=== PATIENT | female | born 1975 | race Caucasian/White ===

== ENCOUNTER 2024-09-18 21:16 | Emergency (ER) | payer BC, OTHER, SELFPAY ==
[2024-09-18 22:41] LABS: ALT/SGPT 26 U/L (13-56); AST/SGOT 15 U/L (15-37); Albumin 3.5 g/dL (3.4-5.0); Albumin/Globulin Ratio 0.9 (1.1-1.8); Alkaline Phosphatase 47 U/L (45-117); BUN Blood Urea Nitrogen 26 mg/dL (7-18); Bicarbonate 26 mEq/L (21-32); Bilirubin Total 0.2 mg/dL (0.2-1.0); Globulin 3.7 g/dL (2.3-3.5); Glomerular Filtration Rate 70 ml/min (=/>90); Glucose Level 94 mg/dL (74-106); NT PRO-BNP 66 pg/mL (<125); Protein, Total 7.2 g/dL (6.4-8.2); Sodium Level 136 mEq/L (136-145)
[2024-09-18 22:42] LABS: Bilirubin Direct < 0.2 mg/dL (0-0.2); Troponin High Sensitivity < 3.0 pg/mL (<58.9)
[2024-09-18 22:46] LABS: Absolute Basophils 0.1 K/uL (0-0.5); Absolute Eosinophils 1.1 K/uL (0-0.5); Absolute Lymphocytes (CBC) 2.5 K/uL (0.7-4.9); Absolute Monocytes 0.6 K/uL (0.1-1.3); Absolute Neutrophil 5.1 K/uL (1.8-8.0); Basophils % 0.9 % (0-1.3); Eosinophils % 11.6 % (0-4.4); Hematocrit 39.1 % (36.0-45.0); Hemoglobin 13.4 g/dL (12.0-15.0); Lymphocytes % 26.4 % (15.3-44.8); MCH 31.2 pg (27.0-35.0); MCHC 34.3 g/dL (32.0-36.0); MCV 90.8 fL (80-100); MPV 8.7 fL (7.6-11.3); Monocytes % 6.4 % (3.3-12.3); Neutrophils % 54.7 % (41.7-73.7); Nucleated Red Blood Cells % 0.1 % (0-0); Platelets 277 thou/uL (152-406); RBC Red Blood Cell Count 4.31 M/uL (3.86-4.86); Red Cell Distribution Width 13.4 % (12.1-15.2)
[2024-09-18] MEDS ORDERED: KETOROLAC 30 MG/ML INJ ONE (22:54)
[2024-09-18] MEDS ORDERED: NA CHLORIDE 0.9% 500 ML ONE (22:55)
[2024-09-19] MEDS ORDERED: MAGNES/ALUMIN/SIMET 30ML UCUP ONE (00:26)
[2024-09-19] MEDS ORDERED: DICYCLOMINE HCL 10 MG CAP ONE (00:26)
[2024-09-19] MEDS ORDERED: LIDOCAINE VISCOUS 2% 10ML ORAL SOLN ONE (00:27)
--- NOTE | 2024-09-19 00:58 | RAD REPORT ---
PROCEDURE: ULTRASOUND RIGHT UPPER QUADRANT TECHNIQUE: High-resolution sonographic evaluation of the right upper quadrant performed. INDICATION: , , ABD PAIN, Bed Name: 9 COMPARE: None FINDINGS: Gallbladder: Unremarkable. No cholelithiasis. Gallbladder wall 2 mm. No pericholecystic fluid. Intrahepatic bile ducts: Normal . Extrahepatic bile ducts: Normal. Common bile duct: 2 mm. IMPRESSION: Normal gallbladder. No biliary dilatation. Electronically signed by: Ismael Corea MD 09/19/2024 12:53 AM [facility] Workstation: [facility] [id number] Due to temporary technical issues with the PACS/[employer] scribe reporting system, reports are being sign ed by the in-house radiologist without review as a courtesy to ensure prompt reporting the interpreting rad iologist is fully responsible for the content of the report. Transcribed Date/Time: 09/19/2024 12:57 AM
--- NOTE | 2024-09-19 01:13 | EDPHYS ---
Physician Documentation [facility] Name: Kasandra Anderson Age: 49 yrs Sex: Female : 1975 Arrival Date: 09/18/2024 Time: 21:16 Bed 9 Private MD: ED Physician Cole Anderson HPI: 09/18 21:26 This 49 yrs old Female presents to ER via Unassigned with complaints of Chest sp4 Pain. 09/19 01:09 Patient is 49-year-old female with history of hypothyroidism, additionally gastritis sp4 and esophagitis, presents with acute onset of upper abdominal epigastric and lower chest pain associated with radiation to the right jaw. . 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 - Infectious Disease History:: Denies. - Social history:: Smoking status: Patient denies any tobacco usage or history of. - Family history:: not pertinent. ROS: 09/19 01:25 Constitutional: Negative for fever, chills, and weight loss, positive chest pain sp4 positive upper abdominal pain All other systems are negative, Exam: 01:25 Constitutional: This is a well developed, well nourished patient who is awake, alert, sp4 and in no acute distress. Head/Face: Normocephalic, atraumatic. Eyes: Pupils equal round and reactive to light, extra-ocular motions intact. Lids and lashes normal. Conjunctiva and sclera are not injected. Cornea within normal limits. Periorbital areas with no swelling, redness, or edema. ENT: Nares patent. No nasal discharge, no septal abnormalities noted. Tympanic membranes are normal and external auditory canals are clear. Oropharynx with no redness, swelling, or masses, exudates, or evidence of obstruction, uvula midline. Mucous membranes moist. Neck: Trachea midline, no thyromegaly or masses palpated, and no cervical lymphadenopathy. Supple, full range of motion without nuchal rigidity, or vertebral point tenderness. Chest/axilla: Normal chest wall appearance and motion. Nontender with no deformity. No lesions are appreciated. Cardiovascular: Regular rate and rhythm with a normal S1 and S2. No gallops, murmurs, or rubs. Normal PMI, no JVD. No pulse deficits. Respiratory: Lungs have equal breath sounds bilaterally, clear to auscultation and percussion. No rales, rhonchi or wheezes noted. No increased work of breathing, no retractions or nasal flaring. Abdomen/GI: Soft, with normal bowel sounds. No distension or tympany. No guarding or rebound. No evidence of tenderness throughout. Back: No spinal tenderness. No costovertebral tenderness. Skin: Warm, dry with normal turgor. Normal color with no rashes, no lesions, and no evidence of cellulitis. MS/ Extremity: Pulses equal, no cyanosis. Neurovascular intact. Full, normal range of motion. Neuro: Awake and alert, GCS 15, oriented to person, place, time, and situation. Cranial nerves II-XII grossly intact. Motor strength 5/5 in all extremities. Sensory grossly intact. Psych: Awake, alert, with orientation to person, place and time. Behavior, mood, and affect are within normal limits 01:25 ECG was reviewed by the Attending Physician. EKG at 2122 normal sinus rhythm rate 63 Vital Signs: 09/18 21:46 BP 105 / 71 RA (auto/reg); Pulse 68; Temp 98.4(O); Pulse Ox 98% on R/A; Weight 61.23 sa1 kg; Height 5 ft. 2 in. ; 23:00 BP 106 / 70; Pulse 66; Resp 14; Pulse Ox 98% ; vc1 09/19 01:00 BP 104 / 68; Pulse 64; Resp 13; Temp 98.5; Pulse Ox 99% ; vc1 09/18 21:46 Body Mass Index 24.69 (61.23 kg, 157.48 cm) sa1 [place] Coma Score: 01:25 Eye Response: spontaneous(4). Motor Response: obeys commands(6). Verbal Response: sp4 oriented(5). Total: 15. MDM: 09/18 21:35 Medical Screening Exam initiated sp4 09/19 00:53 ED course: FINDINGS: Mild motion degradation superiorly. Thoracic: No significant sp4 abnormality. Hepatobiliary: No concerning hepatic lesion identified. The portal veins are patent. The gallbladder is contracted and otherwise unremarkable. No biliary ductal dilatation. Pancreas: Unremarkable. Spleen: Unremarkable. Gastrointestinal: No evidence of bowel obstruction or perienteric inflammation. The appendix is normal. Small to moderate stool burden. Adrenals: No abnormality identified in either adrenal gland. Renal: No concerning parenchymal lesion in either kidney. Punctate nonobstructive calculus in the inferior right kidney. No hydronephrosis or ureteral calculi bilaterally. Bladder/Reproductive: Unremarkable appearance of the urinary bladder by CT technique. Hysterectomy. Vascular/Lymphatics: No lymphadenopathy identified by CT size criteria. Abdominal aorta is normal in caliber. Musculoskeletal: No concerning osseous lesion identified. Partially imaged bilateral breast implants. Prominent disc height loss at L5-S1, with mild endplate degenerative changes. Fluid / peritoneum: No significant free fluid. No free intraperitoneal air identified. IMPRESSION 1. No acute abnormality identified in the abdomen or pelvis, within the limitation of mild motion degradation. 2. Punctate nonobstructive right renal calculus. Electronically signed by: Clari Yan MD 09/18/2024. 01:27 Differential diagnosis: acute pericarditis, anxiety, chest wall pain, cholecystitis, sp4 Cholelithiasis costochondritis, esophagitis. HEART Score: History: Slightly Suspicious (0), ECG: Normal (0), Age: > 45 and < 65 years (1), Risk Factors: No Risk Factors Known (0), Troponin: < or = 1 x Normal Limit (0), Total Score = 1. Data reviewed: vital signs, nurses notes, lab test result(s), EKG, radiologic studies, CT scan, ultrasound. ED course: PROCEDURE: ULTRASOUND RIGHT UPPER QUADRANT TECHNIQUE: High-resolution sonographic evaluation of the right upper quadrant performed. INDICATION: , , ABD PAIN, Bed Name: 9 COMPARE: None FINDINGS: Gallbladder: Unremarkable. No cholelithiasis. Gallbladder wall 2 mm. No pericholecystic fluid. Intrahepatic bile ducts: Normal . Extrahepatic bile ducts: Normal. Common bile duct: 2 mm. IMPRESSION: Normal gallbladder. No biliary dilatation. 09/18 21:26 Order name: Basic Metabolic Panel; Complete Time: 23:04 sp4 09/18 21:26 Order name: CBC with Diff; Complete Time: 23:04 sp4 09/18 21:26 Order name: LFT's; Complete Time: 23:04 sp4 09/18 21:26 Order name: NT PRO-BNP; Complete Time: 23:04 sp4 09/18 21:26 Order name: Troponin HS; Complete Time: 23:04 sp4 09/18 23:26 Order name: Lipase; Complete Time: 00:00 sp4 09/19 00:20 Order name: Troponin High Sensitivity; Complete Time: 02:24 sp4 09/18 23:12 Order name: CT Abd/Pelvis - IV Contrast Only sp4 09/18 23:12 Order name: US Abdomen Limited sp4 09/18 21:26 Order name: Cardiac monitoring; Complete Time: 22:21 sp4 09/18 21:26 Order name: EKG - Nurse/Tech; Complete Time: 22:21 sp4 09/18 21:26 Order name: IV Saline Lock; Complete Time: : sp4 09/18 21:26 Order name: Labs collected and sent; Complete Time: 22:21 sp4 EC/14 21:22 Rate is 63 beats/min. Rhythm is regular, Normal Sinus Rhythm. QRS [place] is Normal. [place] sp4 interval is normal. QRS interval is normal. QT interval is normal. No Q waves. T waves are Normal. No ST changes noted. Clinical impression: No evidence of ischemia. Interpreted by me. Reviewed by me. Administered Medications: 23:09 Drug: Ketorolac IVP 30 mg IVP once Route: IVP; Site: left antecubital; vc1 09/19 01:43 Follow up: Response: No adverse reaction al5 09/18 23:09 Drug: NS 0.9% IV 500 ml 500 ml IV at 1 bolus once; to be given as a bolus over 30 vc1 minutes Volume: 500 ml; Route: IV; Rate: 1 bolus; Site: left antecubital; 09/19 01:43 Follow up: Response: No adverse reaction; IV Status: Completed infusion; IV Intake: al5 500ml 01:32 Drug: GI Cocktail without - (Maalox PO 30 ml, Lidocaine Mucous Membrane 2 % 15 al5 ml) PO once Route: PO; 01:32 Follow up: Response: No adverse reaction; Medication administered at discharge. al5 01:32 Drug: Dicyclomine PO 20 mg PO once Route: PO; al5 01:32 Follow up: Response: No adverse reaction; Medication administered at discharge. al5 Disposition Summary: 09/19/24 01:12 Discharge Ordered Notes: Location: Home sp4 Problem: new sp4 Symptoms: have improved sp4 Condition: Stable sp4 Diagnosis - Acute gastritis sp4 - Chest pain, unspecified sp4 Followup: sp4 - With: Angus Nascimento MD - When: 7 - 10 days - Reason: Recheck today's complaints Discharge Instructions: - Discharge Summary Sheet sp4 - Gastritis, Adult, [id number] sp4 Forms: - Patient Portal Instructions sp4 Prescriptions: - dicyclomine 20 mg Oral tablet - take 2 tablet ORAL route every 6 hours PRN abdominal pain; 30 tablet; Refills: sp4 0, Product Selection Permitted - ondansetron 8 mg Oral Tablet,disintegrating - take 1 tablet ORAL route every 8 hours PRN nausea; 30 tablet; Refills: 0, sp4 Product Selection Permitted Signatures: Dispatcher [employer] Tisha Ocasio RN RN vc1 Cole Anderson MD MD sp4 Becky Waters RN RN al5
--- NOTE | 2024-09-19 01:13 | ER ---
Nurse's Notes [facility] Name: Kasandra Anderson Age: 49 yrs Sex: Female : 1975 Arrival Date: 09/18/2024 Time: 21:16 Bed 9 Private MD: Diagnosis: Acute gastritis;Chest pain, unspecified Presentation: 09/18 21:51 Chief complaint: Patient states: Started having chest pain earlier tonight. Coronavirus vc1 screen: Client denies travel out of the [place] in the last 14 days. Ebola Screen: Patient negative for fever greater than or equal to 101.5 degrees Fahrenheit, and additional compatible Ebola Virus Disease symptoms Patient denies exposure to infectious person. Patient denies travel to an Ebola-affected area in the 21 days before illness onset. No symptoms or risks identified at this time. Initial Sepsis Screen: Does the patient meet any 2 criteria? No. Patient's initial sepsis screen is negative. Does the patient have a suspected source of infection? No. Patient's initial sepsis screen is negative. Risk Assessment: Do you want to hurt yourself or someone else? Patient reports no desire to harm self or others. Onset of symptoms was September 18, 2024. 21:51 Method Of Arrival: Ambulatory vc1 21:51 Acuity: NATHAN 3 vc1 Triage Assessment: 22:04 General: Appears in no apparent distress. comfortable, slender, well groomed, well vc1 developed, well nourished, Behavior is calm, cooperative, appropriate for age. Pain: Complains of pain in chest. EENT: No deficits noted. No signs and/or symptoms were reported regarding the EENT system. Neuro: Level of Consciousness is awake, alert, obeys commands, Oriented to person, place, time, situation, Appropriate for age. Cardiovascular: Heart tones S1 S2 present Capillary refill < 3 seconds Chest pain is described as mild. Respiratory: Airway is patent Respiratory effort is even, unlabored, Respiratory pattern is regular, symmetrical, Breath sounds are clear bilaterally. GI: No deficits noted. No signs and/or symptoms were reported involving the gastrointestinal system. : No deficits noted. No signs and/or symptoms were reported regarding the genitourinary system. Derm: Skin is intact, is healthy with good turgor, Skin is dry, Skin is normal, Skin temperature is warm. Musculoskeletal: Circulation, motion, and sensation intact. Range of motion: intact in all extremities. 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 - Infectious Disease History:: Denies. - Social history:: Smoking status: Patient denies any tobacco usage or history of. - Family history:: not pertinent. Screenin:02 [facility] ED Fall Risk Assessment (Adult) History of falling in the last 3 months, vc1 including since admission No falls in past 3 months (0 pts) Confusion or Disorientation No (0 pts) Intoxicated or Sedated No (0 pts) Impaired Gait No (0 pts) Mobility Assist Device Used No (0 pt) Altered Elimination No (0 pt) Score/Fall Risk Level 0 - 2 = Low Risk Oriented to surroundings, Maintained a safe environment, Educated pt \T\ family on fall prevention, incl call for assistance when getting out of bed. Abuse screen: Denies threats or abuse. Nutritional screening: No deficits noted. Tuberculosis screening: No symptoms or risk factors identified. Assessment: 09/19 01:00 Reassessment: Patient and/or family updated on plan of care and expected duration. Pain vc1 level reassessed. Patient is alert, oriented x 3, equal unlabored respirations, skin warm/dry/pink. Patient states feeling better. Patient states symptoms have improved. Vital Signs: 09/18 21:46 BP 105 / 71 RA (auto/reg); Pulse 68; Temp 98.4(O); Pulse Ox 98% on R/A; Weight 61.23 sa1 kg; Height 5 ft. 2 in. ; 23:00 BP 106 / 70; Pulse 66; Resp 14; Pulse Ox 98% ; vc1 09/19 01:00 BP 104 / 68; Pulse 64; Resp 13; Temp 98.5; Pulse Ox 99% ; vc1 09/18 21:46 Body Mass Index 24.69 (61.23 kg, 157.48 cm) sa1 [place] Coma Score: 01:25 Eye Response: spontaneous(4). Motor Response: obeys commands(6). Verbal Response: sp4 oriented(5). Total: 15. ED Course: 09/18 21:17 Patient arrived in ED. [id number] 21:25 Inserted saline lock: 20 gauge in left antecubital area, using aseptic technique. Blood vc1 collected. Flushed with 10 mL NS. 21:26 Cole Anderson MD is Attending Physician. sp4 21:45 [place] given. sa1 21:51 Tisha Cárdenas, CHITO is Primary Nurse. vc1 21:53 Triage completed. vc1 22:03 Patient has correct armband on for positive identification. Bed in low position. Call vc1 light in reach. Provided Education on: call light. underwriting manager on. Pulse ox on. NIBP on. 22:03 Arm band placed on right wrist. vc1 23:32 CT Abd/Pelvis - IV Contrast Only In Process Unspecified. EDMS 09/19 00:29 US Abdomen Limited In Process Unspecified. EDMS 01:12 Angus Nascimento MD is Referral Physician. sp4 01:32 No provider procedures requiring assistance completed. IV discontinued, intact, vc1 bleeding controlled, No redness/swelling at site. Pressure dressing applied. 01:32 Patient maintains SpO2 saturation greater than 95% on room air. vc1 Administered Medications: 09/18 23:09 Drug: Ketorolac IVP 30 mg IVP once Route: IVP; Site: left antecubital; vc1 09/19 01:43 Follow up: Response: No adverse reaction al5 09/18 23:09 Drug: NS 0.9% IV 500 ml 500 ml IV at 1 bolus once; to be given as a bolus over 30 vc1 minutes Volume: 500 ml; Route: IV; Rate: 1 bolus; Site: left antecubital; 09/19 01:43 Follow up: Response: No adverse reaction; IV Status: Completed infusion; IV Intake: al5 500ml 01:32 Drug: GI Cocktail without - (Maalox PO 30 ml, Lidocaine Mucous Membrane 2 % 15 al5 ml) PO once Route: PO; 01:32 Follow up: Response: No adverse reaction; Medication administered at discharge. al5 01:32 Drug: Dicyclomine PO 20 mg PO once Route: PO; al5 01:32 Follow up: Response: No adverse reaction; Medication administered at discharge. al5 Medication: 09/18 22:03 VIS not applicable for this client. vc1 Intake: 09/19 01:43 IV: 500ml; Total: 500ml. al5 Outcome: 01:12 Discharge ordered by . sp4 01:32 Discharged to home ambulatory, with family, vc1 01:32 Condition: good 01:32 Discharge instructions given to patient, Instructed on discharge instructions, follow up and referral plans. medication usage, Demonstrated understanding of instructions, follow-up care, medications, Prescriptions given X 2, 01:56 Patient left the ED. vc1 Signatures: Dispatcher [employer] EDMS Nicol Kwan [email or web address] Tisha Cárdenas RN RN vc1 Cole Anderson MD MD sp4 Becky Waters RN RN al5 [place]
--- NOTE | 2024-09-19 01:19 | RAD REPORT ---
CLINICAL HISTORY: ABD PAIN. COMPARISON: None. TECHNIQUE: CT of the abdomen and pelvis was performed following intravenous administration of iodinat ed contrast. Oral contrast was not administered. Axial, coronal, and sagittal soft tissue window reconstructions were created and sent to PACS. This exam was performed according to our departmental dose-optimization program, which includes autom ated exposure control, adjustment of the mA and/or kV according to patient size and/or use of iterative reconstruction technique. FINDINGS: Mild motion degradation superiorly. Thoracic: No significant abnormality. Hepatobiliary: No concerning hepatic lesion identified. The portal veins are patent. The gallbladder is contracted and otherwise unremarkable. No biliary ductal dilatation. Pancreas: Unremarkable. Spleen: Unremarkable. Gastrointestinal: No evidence of bowel obstruction or perienteric inflammation. The appendix is valerio l. Small to moderate stool burden. Adrenals: No abnormality identified in either adrenal gland. Renal: No concerning parenchymal lesion in either kidney. Punctate nonobstructive calculus in the inf erior right kidney. No hydronephrosis or ureteral calculi bilaterally. Bladder/Reproductive: Unremarkable appearance of the urinary bladder by CT technique. Hysterectomy. Vascular/Lymphatics: No lymphadenopathy identified by CT size criteria. Abdominal aorta is normal in caliber. Musculoskeletal: No concerning osseous lesion identified. Partially imaged bilateral breast implants. Prominent disc height loss at L5-S1, with mild endplate degenerative changes. Fluid / peritoneum: No significant free fluid. No free intraperitoneal air identified. IMPRESSION 1. No acute abnormality identified in the abdomen or pelvis, within the limitation of mild motion d egradation. 2. Punctate nonobstructive right renal calculus. Electronically signed by: Clari Yan MD 09/18/2024 11:56 PM [facility] Due to temporary technical issues with the [employer]ACS[employer] reporting system, reports are being salma d by the in-house radiologist without review as a courtesy to ensure prompt reporting the interpreting radiologist is fully responsible for the content of the report. Transcribed Date/Time: 09/19/2024 1:18 AM
[2024-09-19 02:29] VITALS: BP 104/68; TEMP 98.5; O2SAT 99
== END 2024-09-19 01:56 | disposition home or self-care (01) ==
LOC: ER 21:16
DX: K29.00 Acute gastritis without bleeding (principal); Z98.82 Breast implant status
CPT/HCPCS: 96361; 93005; 85025; 80048; 36415; 80076; 84484 ×2; 83690; 83880; 74177; 76705; 96374; 99285; Q9967; J7040